=== PATIENT | female | born 1950 | race Asian ===

== ENCOUNTER 2019-02-14 09:04 | Emergency (ER) | payer OTHER ==
[~2019-02-14] VITALS: Ht 154.9 cm; Wt 66.1 kg
[~2019-02-14 09:04] MED LIST: ADV100 IH; ALBU17AE27 IH; ALBU8.5H8 IH; CHOL200018 SQ; DEXA.5 PO; DSS100 PO; PANT20TA PO; SIMV-259 PO
[2019-02-14] MEDS ORDERED: LOSA50TA64 PO (09:24)
[2019-02-14] MEDS ORDERED: IBUP-2070 PO (09:24)
[2019-02-14] MEDS ORDERED: LEVO75 PO (09:24)
[2019-02-14] MEDS ORDERED: GLUC100019 PO (09:26)
[2019-02-14] MEDS ORDERED: TIOT185 IH (09:26)
[2019-02-14] MEDS ORDERED: FAMOTIDINE 10 MG/ML 2 ML VIAL IVP ONE (09:45)
[2019-02-14] MEDS ORDERED: MORPHINE SULFATE 4 MG/ML SYRINGE IVP ONE (09:45)
[2019-02-14] MEDS ORDERED: SODIUM CHLORIDE 0.9% 1,000 ML IV ONE (09:45)
[2019-02-14 10:00] LABS: BASOPHILS % (AUTO) 0.3 % (0.0-2.0); EOSINOPHILS % (AUTO) 0.8 % (1.0-6.0); HEMATOCRIT 37.3 % (36-46); HEMOGLOBIN 12.5 g/dL (12.0-16.0); LYMPHOCYTES # (AUTO) 1.1 K/uL (1.0-4.8); LYMPHOCYTES % (AUTO) 13.9 % (22.0-44.0); MEAN CORPUSCULAR HEMOGLOBIN 31.5 pg (26.0-34.0); MEAN CORPUSCULAR HGB CONC 33.6 G/dL (31.0-37.0); MEAN CORPUSCULAR VOLUME 94 fL (80-100); MONOCYTES # (AUTO) 0.4 K/uL (0.1-1.0); MONOCYTES % (AUTO) 5.1 % (2.0-9.0); NEUTROPHILS # (AUTO) 6.5 K/uL (1.8-7.7); NEUTROPHILS % (AUTO) 79.9 % (40.0-70.0); PLATELET COUNT (AUTO) 149 K/uL (150-450); RED BLOOD CELL COUNT(AUTO) 3.97 MIL/uL (4.00-5.20); RED CELL DISTRIBUTION WIDTH 13.2 % (11.5-14.5)
[2019-02-14 10:13] LABS: ANION GAP 10 mmol/L (8-16); CALCIUM, TOTAL 8.9 mg/dL (8.8-10.5); CARBON DIOXIDE 28 mmol/L (22-29); CHLORIDE 103 mmol/L (98-107); CREATININE 0.62 mg/dL (0.60-1.30); GLOMERULAR FILTR. RATE CALC > 60 mL/min (>60); GLUCOSE,RANDOM 128 mg/dL (70-110); POTASSIUM 3.7 mmol/L (3.5-5.1); SODIUM SERUM 141 mmol/L (136-145); UREA NITROGEN, BLOOD 15 mg/dL (7-18)
[2019-02-14 10:17] LABS: ALANINE AMINOTRANSFERASE 27 U/L (12-78); ALBUMIN 3.5 g/dL (3.4-5.0); ALKALINE PHOSPHATASE 70 U/L (46-116); ASPARTATE AMINOTRANSFERASE 25 U/L (15-37); BILIRUBIN,TOTAL 0.4 mg/dL (0.1-1.0); LIPASE 80 U/L (73-393); TOTAL PROTEIN, SERUM 7.2 g/dL (6.4-8.2)
[2019-02-14 10:28] LABS: APPEARANCE,URINE CLEAR (CLEAR); BILIRUBIN,URINE NEGATIVE (NEGATIVE); GLUCOSE, URINE (UA) NEGATIVE (NEGATIVE); KETONES,URINE 15 mg/dL (NEGATIVE); LEUKOCYTE ESTERASE ,URINE NEGATIVE (NEGATIVE); NITRATE,URINE NEGATIVE (NEGATIVE); OCCULT BLOOD,URINE NEGATIVE (NEGATIVE); PROTEIN,URINE NEGATIVE (NEGATIVE); UROBILINOGEN,URINE 0.2 mg/dL (<=1.0)
[2019-02-14 15:39] VITALS: BP 165/82
== END 2019-02-14 15:51 | disposition home or self-care (01) ==
LOC: EMS 09:04
DX: R10.13 Epigastric pain (principal); R11.2 Nausea with vomiting, unspecified; R19.7 Diarrhea, unspecified; J45.909 Unspecified asthma, uncomplicated; I10 Essential (primary) hypertension; F17.210 Nicotine dependence, cigarettes, uncomplicated; Z88.6 Allergy status to analgesic agent; Z88.8 Allergy status to other drugs, medicaments and biological substances; Z88.1 Allergy status to other antibiotic agents
CPT/HCPCS: 36415; 70450; 74022; 74176; 80053; 81003; 83690; 84484; 85025; 93005; 96361; 96374; 96375; 99285; J2270; J3490; J7030

== ENCOUNTER 2019-02-16 11:47 | Emergency (ER) | payer OTHER ==
[~2019-02-16] VITALS: Ht 152.4 cm; Wt 59.1 kg
[~2019-02-16 11:47] MED LIST changes: -DEXA.5 PO; -DSS100 PO; +GLUC100019 PO; +IBUP-2070 PO; +LEVO75 PO; +LOSA50TA64 PO; +TIOT185 IH
[2019-02-16 12:59] LABS: BASOPHILS % (AUTO) 0.6 % (0.0-2.0); EOSINOPHILS % (AUTO) 0.4 % (1.0-6.0); HEMATOCRIT 39.8 % (36-46); HEMOGLOBIN 13.4 g/dL (12.0-16.0); LYMPHOCYTES # (AUTO) 1.2 K/uL (1.0-4.8); LYMPHOCYTES % (AUTO) 22.7 % (22.0-44.0); MEAN CORPUSCULAR HEMOGLOBIN 31.6 pg (26.0-34.0); MEAN CORPUSCULAR HGB CONC 33.8 G/dL (31.0-37.0); MEAN CORPUSCULAR VOLUME 94 fL (80-100); MONOCYTES # (AUTO) 0.3 K/uL (0.1-1.0); MONOCYTES % (AUTO) 6.7 % (2.0-9.0); NEUTROPHILS # (AUTO) 3.5 K/uL (1.8-7.7); NEUTROPHILS % (AUTO) 69.6 % (40.0-70.0); PLATELET COUNT (AUTO) 176 K/uL (150-450); RED BLOOD CELL COUNT(AUTO) 4.25 MIL/uL (4.00-5.20); RED CELL DISTRIBUTION WIDTH 13.1 % (11.5-14.5)
[2019-02-16 13:23] LABS: ANION GAP 11 mmol/L (8-16); CALCIUM, TOTAL 9.4 mg/dL (8.8-10.5); CARBON DIOXIDE 30 mmol/L (22-29); CHLORIDE 103 mmol/L (98-107); CREATININE 0.58 mg/dL (0.60-1.30); GLOMERULAR FILTR. RATE CALC > 60 mL/min (>60); GLUCOSE,RANDOM 111 mg/dL (70-110); POTASSIUM 3.6 mmol/L (3.5-5.1); SODIUM SERUM 144 mmol/L (136-145); UREA NITROGEN, BLOOD 9 mg/dL (7-18)
[2019-02-16 13:28] LABS: ALANINE AMINOTRANSFERASE 25 U/L (12-78); ALBUMIN 3.8 g/dL (3.4-5.0); ALKALINE PHOSPHATASE 78 U/L (46-116); ASPARTATE AMINOTRANSFERASE 25 U/L (15-37); BILIRUBIN,TOTAL 0.7 mg/dL (0.1-1.0); LIPASE 76 U/L (73-393); TOTAL PROTEIN, SERUM 7.3 g/dL (6.4-8.2)
[2019-02-16] MEDS ORDERED: SODIUM CHLORIDE 0.9% 100 ML ONE (14:05)
[2019-02-16] MEDS ORDERED: IOVERSOL 320 MG/ML 100 ML VIAL ONE (14:06)
[2019-02-16] MEDS ORDERED: VITAD1000 PO (14:07)
[2019-02-16] MEDS ORDERED: SODIUM CHLORIDE 0.9% 1,000 ML IV ONE (14:15)
[2019-02-16] MEDS ORDERED: PB/HYOSCY/ATR/SCOP/LIDO/MAALOX 55 ML BOTTLE PO ONE (14:15)
[2019-02-16] MEDS ORDERED: ONDANSETRON HCL 4 MG/2 ML VIAL IVP ONE (14:15)
[2019-02-16 18:36] VITALS: BP 162/99
== END 2019-02-16 18:45 | disposition home or self-care (01) ==
LOC: EMS 11:48
DX: K29.70 Gastritis, unspecified, without bleeding (principal); R93.5 Abnormal findings on diagnostic imaging of other abdominal regions, including retroperitoneum; R42 Dizziness and giddiness; R53.1 Weakness; E03.9 Hypothyroidism, unspecified; I10 Essential (primary) hypertension; H26.9 Unspecified cataract; J44.9 Chronic obstructive pulmonary disease, unspecified; F17.210 Nicotine dependence, cigarettes, uncomplicated; Z79.899 Other long term (current) drug therapy; Z88.6 Allergy status to analgesic agent; Z88.8 Allergy status to other drugs, medicaments and biological substances
CPT/HCPCS: 36415; 71045; 74177; 80053; 83605; 83690; 84484; 85025; 93005; 96361; 96374; 99284; J2405; J7030; J7050; Q9967

== ENCOUNTER 2019-10-20 18:31 | Emergency (ER) | payer OTHER ==
[~2019-10-20] VITALS: Ht 153 cm; Wt 57.0 kg
[~2019-10-20 18:31] MED LIST changes: -ALBU17AE27 IH; +CHOL100018 PO; -CHOL200018 SQ; -GLUC100019 PO; -IBUP-2070 PO
[2019-10-20] MEDS ORDERED: ACYC200C PO (18:35)
[2019-10-20] MEDS ORDERED: GABA-529 PO (18:35)
[2019-10-20] MEDS ORDERED: HYDR25TA PO (18:37)
[2019-10-20 19:09] VITALS: BP 128/74
[2019-10-20] MEDS ORDERED: HYDROCODONE/ACETAMINOPHEN 10-325 MG TABLET PO ONE (19:15)
[2019-10-20] MEDS ORDERED: ATOR10TA84 PO (19:21)
[2019-10-20] MEDS ORDERED: HYDR200T4 PO (19:21)
[2019-10-20] MEDS ORDERED: CHOL100018 PO (19:21)
[2019-10-20] MEDS ORDERED: GABA-531 PO (19:21)
[2019-10-20] MEDS ORDERED: PANT40TA25 PO (19:21)
[2019-10-20] MEDS ORDERED: VALA100026 PO (19:21)
== END 2019-10-20 20:01 | disposition home or self-care (01) ==
LOC: EMS 18:32
DX: B02.9 Zoster without complications (principal); J45.909 Unspecified asthma, uncomplicated; I10 Essential (primary) hypertension; E03.9 Hypothyroidism, unspecified; F17.210 Nicotine dependence, cigarettes, uncomplicated; Z88.6 Allergy status to analgesic agent; Z88.8 Allergy status to other drugs, medicaments and biological substances

== ENCOUNTER 2022-10-28 14:56 | Emergency (ER) | payer MEDICARE, OTHER ==
[~2022-10-28] VITALS: Ht 160 cm; Wt 67.3 kg
[~2022-10-28 14:56] MED LIST changes: -ADV100 IH; +ALEN70TA65 PO; +ASCO500 PO; +ATOR20TA86 PO; -CHOL100018 PO; +CHOL500013 PO; +CYCL-448 PO; +FLUT1BLS3 IH; -LOSA50TA64 PO; -PANT20TA PO; -SIMV-259 PO; -TIOT185 IH
[2022-10-28] MEDS ORDERED: ATOR10TA69 PO (15:07)
[2022-10-28] MEDS ORDERED: FAMO20 PO (15:07)
[2022-10-28 15:21] VITALS: BP 149/92
[2022-10-28] MEDS ORDERED: TraMADol HCL 50 MG TABLET PO ONE (15:30)
[2022-10-28] MEDS ORDERED: LIDOCAINE 1% 10 ML VIAL SQ ONE (15:30)
[2022-10-28] MEDS ORDERED: BACITRACIN 0.9 GM PACKET OINTMENT TP ONE (15:30)
[2022-10-28] MEDS ORDERED: POVIDONE-IODINE 10% 15 ML SOLUTION UD TP ONE (15:30)
[2022-10-28] MEDS ORDERED: PERTUSS(ACELL),DIPH,TET VAC/PF 0.5 ML SYRINGE IM. ONE (16:45)
== END 2022-10-28 17:03 | disposition home or self-care (01) ==
LOC: EMS 15:03
DX: S61.311A Laceration without foreign body of left index finger with damage to nail, initial encounter (principal); J45.909 Unspecified asthma, uncomplicated; J44.9 Chronic obstructive pulmonary disease, unspecified; E78.00 Pure hypercholesterolemia, unspecified; I10 Essential (primary) hypertension; E03.9 Hypothyroidism, unspecified; Z87.891 Personal history of nicotine dependence; Z98.890 Other specified postprocedural states; W26.0XXA Contact with knife, initial encounter; Y93.89 Activity, other specified; Y92.89 Other specified places as the place of occurrence of the external cause; Y99.8 Other external cause status
CPT/HCPCS: 99283; 90715; 90471; 12001; J3490

== ENCOUNTER 2022-10-30 07:18 | Emergency (ER) | payer MEDICARE, OTHER ==
[~2022-10-30] VITALS: Ht 152.4 cm; Wt 68.2 kg
[~2022-10-30 07:18] MED LIST changes: +ATOR10TA69 PO; +FAMO20 PO
[2022-10-30 07:22] VITALS: BP 153/74
== END 2022-10-30 08:39 | disposition home or self-care (01) ==
LOC: EMS 07:21
DX: S61.311D Laceration without foreign body of left index finger with damage to nail, subsequent encounter (principal); J45.909 Unspecified asthma, uncomplicated; E78.00 Pure hypercholesterolemia, unspecified; I10 Essential (primary) hypertension; J44.9 Chronic obstructive pulmonary disease, unspecified; E03.9 Hypothyroidism, unspecified; Z98.890 Other specified postprocedural states; Z88.6 Allergy status to analgesic agent; X58.XXXD Exposure to other specified factors, subsequent encounter
CPT/HCPCS: 99282; Z7502

== ENCOUNTER 2022-11-06 07:23 | Emergency (ER) | payer MEDICARE, OTHER ==
[~2022-11-06] VITALS: Ht 152.4 cm; Wt 63.6 kg
[~2022-11-06 07:23] MED LIST changes: -ALEN70TA65 PO; -ATOR20TA86 PO; -CYCL-448 PO; -FLUT1BLS3 IH
[2022-11-06 07:26] VITALS: BP 146/73
[2022-11-06] MEDS ORDERED: BACITRACIN 0.9 GM PACKET OINTMENT TP ONE (08:15)
== END 2022-11-06 08:28 | disposition home or self-care (01) ==
LOC: EMS 07:28
DX: S61.211D Laceration without foreign body of left index finger without damage to nail, subsequent encounter (principal); J45.909 Unspecified asthma, uncomplicated; E78.00 Pure hypercholesterolemia, unspecified; I10 Essential (primary) hypertension; J44.9 Chronic obstructive pulmonary disease, unspecified; E03.9 Hypothyroidism, unspecified; J18.9 Pneumonia, unspecified organism; Z88.4 Allergy status to anesthetic agent; Z88.5 Allergy status to narcotic agent; Z88.6 Allergy status to analgesic agent; W26.0XXD Contact with knife, subsequent encounter
CPT/HCPCS: 99282; Z7502; Z7610

== ENCOUNTER 2024-12-22 11:40 | Emergency (ER) | payer MEDICARE, OTHER ==
[~2024-12-22] VITALS: Ht 153 cm; Wt 62.3 kg
[2024-12-22 11:43] VITALS: TEMP 97.9
[2024-12-22 12:00] LABS: COVID AG,FIA SOURCE NASAL SWAB
[2024-12-22 12:30] LABS: INFLUENZA TYPE A NEGATIVE FOR TYPE A (NEGATIVE); INFLUENZA TYPE B NEGATIVE FOR TYPE B (NEGATIVE); SARS-COV2 (COVID) ANTIGEN,FIA Negative (Negative)
[2024-12-22 13:45] LABS: BASOPHILS % (AUTO) 0.3 % (0.0-2.0); EOSINOPHILS % (AUTO) 1.6 % (1.0-6.0); HEMATOCRIT 37.3 % (36-46); HEMOGLOBIN 12.5 g/dL (12.0-16.0); LYMPHOCYTES # (AUTO) 1.2 K/uL (1.0-4.8); LYMPHOCYTES % (AUTO) 20.9 % (22.0-44.0); MEAN CORPUSCULAR HEMOGLOBIN 32.3 pg (26.0-34.0); MEAN CORPUSCULAR HGB CONC 33.6 G/dL (31.0-37.0); MEAN CORPUSCULAR VOLUME 96 fL (80-100); MONOCYTES # (AUTO) 0.6 K/uL (0.1-1.0); MONOCYTES % (AUTO) 10.3 % (2.0-9.0); NEUTROPHILS # (AUTO) 3.9 K/uL (1.8-7.7); NEUTROPHILS % (AUTO) 66.9 % (40.0-70.0); PLATELET COUNT (AUTO) 149 K/uL (150-450); RED BLOOD CELL COUNT(AUTO) 3.88 MIL/uL (4.00-5.20); RED CELL DISTRIBUTION WIDTH 13.6 % (11.5-14.5); WHITE BLOOD COUNT (AUTO) 5.8 K/uL (4.5-11.0)
[2024-12-22 13:54] LABS: ANION GAP 8 mmol/L (8-16); CALCIUM, TOTAL 8.5 mg/dL (8.8-10.5); CARBON DIOXIDE 29 mmol/L (22-29); CHLORIDE 110 mmol/L (98-107); CREATININE 0.71 mg/dL (0.60-1.30); GLOMERULAR FILTR. RATE CALC > 60 mL/min (>60); GLUCOSE,RANDOM 96 mg/dL (70-110); POTASSIUM 4.4 mmol/L (3.5-5.1); SODIUM SERUM 147 mmol/L (136-145); UREA NITROGEN, BLOOD 17 mg/dL (7-18)
[2024-12-22] MEDS ORDERED: ALBUTEROL SULFATE HFA 90 MCG/PUFF 8 GM INHALER IH ONE (14:00)
[2024-12-22 14:03] LABS: TROPONIN I-HIGH SENSITIVITY 5 ng/L (<51)
[2024-12-22] MEDS: ALBUTEROL SULFATE 2.5 MG/0.5 ML NEB SOLUTION NEB ONE (14:03)
[2024-12-22] MEDS: IPRATROPIUM BROMIDE 0.5 MG/2.5 ML NEB SOLUTION NEB ONE (14:03)
[2024-12-22 14:05] LABS: B-TYPE NATRIURETIC PEPTIDE 41 pg/mL (0-100)
[2024-12-22] MEDS ORDERED: BUDE10.27 IH (14:35)
[2024-12-22] MEDS ORDERED: PRED-554 PO (14:35)
[2024-12-22] MEDS ORDERED: ALBU2.5V39 NEB (14:35)
[2024-12-22 14:45] VITALS: PULSE 76; PULSE 86; RESP 18; O2SAT 96; O2SAT 97
[2024-12-22] MEDS ORDERED: PredniSONE 20 MG TABLET PO ONE (14:45)
[2024-12-22] MEDS: PrednisoLONE SOD PHOSPHATE 15 MG/5 ML SOLUTION UDCUP PO ONE (14:46)
[2024-12-22 15:05] VITALS: BP 128/74; PULSE 80; RESP 16; O2SAT 99
== END 2024-12-22 16:33 | disposition home or self-care (01) ==
LOC: EMS 11:40
DX: J44.1 Chronic obstructive pulmonary disease with (acute) exacerbation (principal); J45.901 Unspecified asthma with (acute) exacerbation; R09.81 Nasal congestion; I10 Essential (primary) hypertension; E78.00 Pure hypercholesterolemia, unspecified; E03.9 Hypothyroidism, unspecified; Z88.1 Allergy status to other antibiotic agents; Z88.6 Allergy status to analgesic agent; Z88.8 Allergy status to other drugs, medicaments and biological substances; Z79.51 Long term (current) use of inhaled steroids; Z79.52 Long term (current) use of systemic steroids; Z79.899 Other long term (current) drug therapy; Z20.822 Contact with and (suspected) exposure to COVID-19
CPT/HCPCS: 99285; 71045; 87426; 80048; 83880; 84484; 85025; 85379; 87804; 36415; 94640; 93005; J7512; J3535; J7510; J7613